=== PATIENT | female | born 1950 | race Asian ===

== ENCOUNTER 2016-10-02 08:12 | Outpatient (CLI) | payer OTHER | END 2016-10-02 21:31 | disposition home or self-care (01) | LOC: MLB 08:12 | PROVIDERS: ATTEND Family Medicine Geriatric Medicine | DX: Z13.220 Encounter for screening for lipoid disorders (principal); Z13.29 Encounter for screening for other suspected endocrine disorder; I10 Essential (primary) hypertension ==